=== PATIENT | female | born 1980 | race Caucasian/White ===

== ENCOUNTER 2017-01-16 10:53 | Emergency (ER) | payer MEDICAID ==
[~2017-01-16] VITALS: Ht 157.5 cm; Wt 70.1 kg
[2017-01-16] MEDS ORDERED: SODIUM CHLORIDE 0.9% 1,000 ML IV ONE (11:33)
[2017-01-16] MEDS ORDERED: SODIUM CHLORIDE 0.9% 1,000ML IVBOLUS ONE (12:00)
[2017-01-16] MEDS ORDERED: ONDANSETRON 2MG/ML, 2ML IVPush ONE (12:00)
[2017-01-16] MEDS ORDERED: HYDROmorphone 1 MG/ML, 1ML IVPush PRN (12:00)
[2017-01-16] MEDS ORDERED: SODIUM CHLORIDE FLUSH 10ML SYR IVF ONE (12:00)
[2017-01-16] MEDS ORDERED: FAMOTIDINE 20 MG/2 ML ONE (12:01)
[2017-01-16] MEDS ORDERED: HYDROmorphone 1 MG/ML, 1ML ONE (12:01)
[2017-01-16] MEDS ORDERED: ONDANSETRON 2MG/ML, 2ML ONE (12:01)
[2017-01-16 12:06] LABS: ASPARTATE AMINO TRANSFERASE 12 U/L (15-37); BLOOD UREA NITROGEN 9 mg/dL (7-18)
[2017-01-16] MEDS ORDERED: ACETAMINOPHEN 325 MG TABLET PO ONE (13:30)
[2017-01-16] MEDS ORDERED: CEFTRIAXONE PMX 1GM/50ML 50 ML IVPB ONE (13:30)
[2017-01-16] MEDS ORDERED: CEFTRIAXONE PMX 1GM/50ML 50 ML ONE (14:29)
[2017-01-16] MEDS ORDERED: OMNIPAQUE 350 MG/ML, 100ML BOTTLE ONE (16:00)
[2017-01-16 16:09] VITALS: BP 106/63
== END 2017-01-16 16:11 | disposition home or self-care (01) ==
LOC: ED 11:53
DX: N30.00 Acute cystitis without hematuria (principal); F17.200 Nicotine dependence, unspecified, uncomplicated
CPT/HCPCS: 36415; 74177; 80053; 81001; 83690; 84703; 85025; 87086; 96361; 96365; 96375; 99285; J0696; J1170; J2405; J7030; Q9967

== ENCOUNTER 2017-01-17 04:36 | Emergency (ER) | payer MEDICAID ==
[~2017-01-17] VITALS: Ht 157.5 cm; Wt 70.3 kg
[2017-01-17] MEDS ORDERED: KETOROLAC 30 MG/1 ML ONE (05:28)
[2017-01-17] MEDS ORDERED: PHENAZOPYRIDINE 200 MG TABLET ONE (05:28)
[2017-01-17] MEDS ORDERED: KETOROLAC 30 MG/1 ML IM ONE (05:30)
[2017-01-17] MEDS ORDERED: PHENAZOPYRIDINE 200 MG TABLET PO ONE (05:30)
[2017-01-17] MEDS ORDERED: AZITHROMYCIN 500 MG TABLET PO ONE (06:00)
[2017-01-17] MEDS ORDERED: metroNIDAZOLE 500 MG TABLET ONE (06:38)
[2017-01-17] MEDS ORDERED: AZITHROMYCIN 500 MG TABLET ONE (06:39)
[2017-01-17 06:48] VITALS: BP 122/74
[2017-01-17] MEDS ORDERED: metroNIDAZOLE 500 MG TABLET PO ONE (07:00)
== END 2017-01-17 06:56 | disposition home or self-care (01) ==
LOC: ED 04:58
DX: N30.90 Cystitis, unspecified without hematuria (principal)
CPT/HCPCS: 87210; 87491; 87591; 87808; 96372; 99284; J1885